=== PATIENT | male | born 1990 | race Caucasian/White ===

== ENCOUNTER 2020-01-30 21:10 | Observation (INO) ==
[2020-01-30 22:16] LABS: Urine Appearance Clear; Urine Bilirubin Negative (Negative); Urine Blood Negative (Negative); Urine Color Yellow; Urine Glucose Negative (Negative); Urine Ketones Negative (Negative); Urine Nitrite Negative (Negative); Urine Protein Negative (Negative); Urine Specific Gravity 1.005 (1.010-1.030); Urine Urobilinogen Negative (Negative)
[2020-01-30 22:28] LABS: Urine Benzodiazepine Screen None Detected (None Detect); Urine Cannabinoids Screen None Detected (None Detect); Urine Opiates Screen None Detected (None Detect)
[2020-01-31] MEDS ORDERED: NS 0.9% 1000 ml BAG 1,000 ML IV ONE (00:13)
[2020-01-31] MEDS ORDERED: Thiamine 100 MG/ML 2 ml VIAL (200 mg) IM ONE (00:16)
[2020-01-31 01:03] LABS: ABS Eosinophils 0.1 10^3/ul (0-0.6); ABS Lymphocytes 1.8 10^3/ul (1.0-4.8); ABS Monocytes 0.6 10^3/ul (0-0.8); Eosinophil % 1.1 %; Hematocrit 38 % (42-52); Hemoglobin 12.6 g/dL (14.0-18.0); Lymphocyte % 27.3 %; Mean Corpuscular HGB Conc 33 g/dL (31-36); Mean Corpuscular Hemoglobin 30 pg (27-31); Mean Corpuscular Volume 91 fL (80-94); Mean Platelet Volume 8.1 fL (7.4-10.4); Platelet Count 335 10^3/uL (150-450); Red Blood Count 4.15 10^6 /uL (4.18-5.48); Red Cell Distribution Width 16 % (10-15); White Blood Count 6.4 10^3/uL (3.5-10.8)
[2020-01-31] MEDS ORDERED: Lorazepam PYXIS KEY PRN (01:26)
[2020-01-31 01:36] LABS: ALT 10 U/L (7-52); AST 14 U/L (13-39); Albumin 4.2 g/dL (3.2-5.2); Albumin/Globulin Ratio 1.7 (1-3); Alkaline Phosphatase 78 U/L (34-104); Anion Gap 7 mmol/L (2-11); BUN/Creatinine Ratio 7.6 (8-20); Blood Urea Nitrogen 7 mg/dL (6-24); CO2 Carbon Dioxide 28 mmol/L (22-32); Calcium 9.3 mg/dL (8.6-10.3); Chloride 103 mmol/L (101-111); EGFR African American 117.7 (>60); EGFR Non-African American 97.3 (>60); Globulin 2.5 g/dL (2-4); Glucose 106 mg/dL (70-100); Lipase 33 U/L (11.0-82.0); Sodium 138 mmol/L (135-145); Total Protein 6.7 g/dL (6.4-8.9)
[2020-01-31 01:37] LABS: Acetaminophen < 15 mcg/mL; Alcohol, S < 10 mg/dL (<10); Salicylate < 2.50 mg/dL (<30)
[2020-01-31] MEDS ORDERED: Potassium Chlor 20 meq TAB.ER PO ONE (01:59)
[2020-01-31] MEDS ORDERED: Naloxone Nasal Spray 4 MG/0.1 ML NASAL.SPR INTRANASAL PRN (02:00)
[2020-01-31 02:28] LABS: Troponin I 0.01 ng/mL (<0.03)
[2020-01-31] MEDS: LORazepam 2 mg VIAL 1 ml IV PUSH PRN ×7 (03:56→23:15)
[2020-01-31] MEDS: Buprenorp/Nalox 8-2 MG FILM SL FILM SCH ×2 (08:21→19:59)
[2020-01-31] MEDS: Ondansetron 4 mg VIAL 2 MG/ML 2 ml VIAL IV PRN ×2 (08:21→17:37)
[2020-01-31] MEDS: Multivitamins/Minerals TAB PO SCH (08:22)
[2020-01-31] MEDS ORDERED: Nicotine GUM 2MG FRUIT FLAVOR PO PRN (20:13)
[2020-01-31] MEDS: Nicotine PATCH 7 MG/24 HR PATCH TRANSDERM SCH (21:14)
[2020-02-01] MEDS: LORazepam 2 mg VIAL 1 ml IV PUSH PRN ×3 (03:32→09:57)
[2020-02-01 07:29] LABS: Calcium 8.9 mg/dL (8.6-10.3); Potassium 3.8 mmol/L (3.5-5.0)
[2020-02-01] MEDS: Nicotine PATCH 7 MG/24 HR PATCH TRANSDERM SCH (07:32)
[2020-02-01] MEDS: Multivitamins/Minerals TAB PO SCH (07:32)
[2020-02-01] MEDS: Buprenorp/Nalox 8-2 MG FILM SL FILM SCH (07:32)
[2020-02-01 07:34] LABS: BUN/Creatinine Ratio 9.8 (8-20); EGFR African American 134.4 (>60); EGFR Non-African American 111.1 (>60)
[2020-02-01 11:15] VITALS: BP 134/91
== END 2020-02-01 12:25 | disposition home or self-care (01) | DRG 773 ==
LOC: ED 21:10 → MED 01-31 01:20 → INTOOBSV 01-31 01:20
PROVIDERS: ADMIT Internal Medicine; ATTEND Internal Medicine

== ENCOUNTER 2020-02-21 14:14 | Inpatient (IN) ==
[2020-02-21 15:49] LABS: ABS Lymphocytes 1.6 10^3/ul (1.0-4.8); ABS Monocytes 0.5 10^3/ul (0-0.8); ABS Neutrophils 5.6 10^3/ul (1.5-7.7); Eosinophil % 0.5 %; Hematocrit 42 % (42-52); Hemoglobin 13.9 g/dL (14.0-18.0); Lymphocyte % 20.5 %; Mean Corpuscular HGB Conc 34 g/dL (31-36); Mean Corpuscular Hemoglobin 31 pg (27-31); Mean Corpuscular Volume 92 fL (80-94); Platelet Count 308 10^3/uL (150-450); Red Blood Count 4.55 10^6 /uL (4.18-5.48); Red Cell Distribution Width 15 % (10-15); White Blood Count 7.6 10^3/uL (3.5-10.8)
[2020-02-21 15:50] LABS: Urine Appearance Clear; Urine Bilirubin Negative (Negative); Urine Blood Negative (Negative); Urine Color Straw; Urine Glucose Negative (Negative); Urine Ketones Negative (Negative); Urine Nitrite Negative (Negative); Urine Protein Negative (Negative); Urine Specific Gravity 1.005 (1.010-1.030); Urine Urobilinogen Negative (Negative)
[2020-02-21 16:12] LABS: Urine Benzodiazepine Screen None Detected (None Detect); Urine Cannabinoids Screen None Detected (None Detect); Urine Opiates Screen None Detected (None Detect)
[2020-02-21 16:15] LABS: ALT 12 U/L (7-52); AST 16 U/L (13-39); Albumin 4.9 g/dL (3.2-5.2); Albumin/Globulin Ratio 1.7 (1-3); Alkaline Phosphatase 91 U/L (34-104); Anion Gap 8 mmol/L (2-11); BUN/Creatinine Ratio 7.8 (8-20); Blood Urea Nitrogen 7 mg/dL (6-24); CO2 Carbon Dioxide 26 mmol/L (22-32); Calcium 9.5 mg/dL (8.6-10.3); Chloride 104 mmol/L (101-111); Creatine Kinase 128 U/L (10-223); EGFR African American 120.7 (>60); EGFR Non-African American 99.8 (>60); Globulin 2.9 g/dL (2-4); Glucose 114 mg/dL (70-100); Potassium 3.9 mmol/L (3.5-5.0); Sodium 138 mmol/L (135-145); Total Protein 7.8 g/dL (6.4-8.9)
[2020-02-21 16:18] LABS: Acetaminophen < 15 mcg/mL; Alcohol, S < 10 mg/dL (<10); Salicylate < 2.50 mg/dL (<30)
[2020-02-21 16:24] LABS: TSH Ultra Thyroid Stim Horm 1.06 mcIU/mL (0.34-5.60)
[2020-02-22] MEDS ORDERED: Al Hydrox/Mg Hydrox/Simet LIQ 30 ML UDC PO PRN (09:29)
[2020-02-22] MEDS ORDERED: Senna TAB 8.6 mg TAB PO PRN (09:31)
[2020-02-22] MEDS ORDERED: Buprenorp/Nalox 8-2 MG SL TAB SL ONE (12:20)
[2020-02-22] MEDS ORDERED: Buprenorp/Nalox 8-2 MG FILM SL FILM ONE (13:00)
[2020-02-22] MEDS: Buprenorp/Nalox 8-2 MG FILM SL FILM SCH (21:21)
[2020-02-23] MEDS: Nicotine PATCH 14 MG/24 HR PATCH TRANSDERM SCH ×2 (00:26→09:27)
[2020-02-23 07:49] LABS: HDL Cholesterol 54.5 mg/dL
[2020-02-23] MEDS: Buprenorp/Nalox 8-2 MG FILM SL FILM SCH ×2 (09:27→20:37)
[2020-02-23] MEDS: Nicotine GUM 2MG FRUIT FLAVOR PO PRN (09:27)
[2020-02-24] MEDS: Buprenorp/Nalox 8-2 MG FILM SL FILM SCH ×2 (08:35→20:43)
[2020-02-24] MEDS: Nicotine PATCH 14 MG/24 HR PATCH TRANSDERM SCH (09:44)
[2020-02-24] MEDS: Nicotine GUM 2MG FRUIT FLAVOR PO PRN (16:48)
[2020-02-25] MEDS: Nicotine PATCH 14 MG/24 HR PATCH TRANSDERM SCH (08:38)
[2020-02-25] MEDS: Buprenorp/Nalox 8-2 MG FILM SL FILM SCH ×2 (08:39→20:39)
[2020-02-26] MEDS: Nicotine PATCH 14 MG/24 HR PATCH TRANSDERM SCH (08:26)
[2020-02-26] MEDS: Nicotine GUM 2MG FRUIT FLAVOR PO PRN (08:27)
[2020-02-26] MEDS: Buprenorp/Nalox 8-2 MG FILM SL FILM SCH ×2 (08:27→20:26)
[2020-02-27] MEDS: Nicotine PATCH 14 MG/24 HR PATCH TRANSDERM SCH (08:35)
[2020-02-27] MEDS: Buprenorp/Nalox 8-2 MG FILM SL FILM SCH ×2 (08:37→20:25)
[2020-02-28] MEDS: Nicotine PATCH 14 MG/24 HR PATCH TRANSDERM SCH (08:28)
[2020-02-28] MEDS: Buprenorp/Nalox 8-2 MG FILM SL FILM SCH ×2 (08:28→20:06)
[2020-02-28] MEDS: Nicotine GUM 2MG FRUIT FLAVOR PO PRN (08:30)
[2020-02-29] MEDS: Buprenorp/Nalox 8-2 MG FILM SL FILM SCH ×2 (08:22→20:18)
[2020-02-29] MEDS: Nicotine PATCH 14 MG/24 HR PATCH TRANSDERM SCH (08:45)
[2020-02-29] MEDS: Nicotine GUM 2MG FRUIT FLAVOR PO PRN (20:18)
[2020-03-01] MEDS: Buprenorp/Nalox 8-2 MG FILM SL FILM SCH ×2 (08:32→20:16)
[2020-03-01] MEDS: Nicotine PATCH 14 MG/24 HR PATCH TRANSDERM SCH (13:25)
[2020-03-01] MEDS: Nicotine GUM 2MG FRUIT FLAVOR PO PRN (16:04)
[2020-03-02] MEDS: Buprenorp/Nalox 8-2 MG FILM SL FILM SCH ×2 (08:14→20:09)
[2020-03-02] MEDS: Nicotine PATCH 14 MG/24 HR PATCH TRANSDERM SCH ×2 (08:15→09:30)
[2020-03-02] MEDS: Nicotine GUM 2MG FRUIT FLAVOR PO PRN ×2 (14:19→18:47)
[2020-03-03] MEDS: Buprenorp/Nalox 8-2 MG FILM SL FILM SCH ×2 (08:30→20:15)
[2020-03-03] MEDS: Nicotine PATCH 14 MG/24 HR PATCH TRANSDERM SCH (08:31)
[2020-03-04] MEDS: Nicotine PATCH 14 MG/24 HR PATCH TRANSDERM SCH (08:05)
[2020-03-04] MEDS: Buprenorp/Nalox 8-2 MG FILM SL FILM SCH ×2 (08:06→20:05)
[2020-03-04] MEDS: Nicotine GUM 2MG FRUIT FLAVOR PO PRN ×2 (09:47→17:17)
[2020-03-05] MEDS: Nicotine PATCH 14 MG/24 HR PATCH TRANSDERM SCH (08:21)
[2020-03-05] MEDS: Buprenorp/Nalox 8-2 MG FILM SL FILM SCH ×2 (08:22→20:12)
[2020-03-05 20:15] VITALS: BP 137/92
[2020-03-05] MEDS: Nicotine GUM 2MG FRUIT FLAVOR PO PRN (22:19)
[2020-03-06] MEDS: Nicotine PATCH 14 MG/24 HR PATCH TRANSDERM SCH (05:26)
[2020-03-06] MEDS ORDERED: Buprenorp/Nalox 8-2 MG FILM SL FILM SCH (06:00)
== END 2020-03-06 05:35 | DRG 751 ==
LOC: ED 14:14 → BSU 02-22 09:29
PROVIDERS: ADMIT Psychiatry & Neurology Psychiatry; ATTEND Psychiatry & Neurology Psychiatry